=== PATIENT | male | born 1955 | race Caucasian/White ===

== ENCOUNTER 2017-08-24 18:11 | Emergency (ER) | payer SELFPAY ==
[~2017-08-24 18:11] MED LIST: Sodium Chloride Irrig Solution 250 ML BOT ONE
--- NOTE | 2017-08-24 19:33 | RAD ---
RIGHT LITTLE FINGER 08/24/17 HISTORY: Table saw injury to finger. Soft tissue injury without underlying fracture is seen. IMPRESSION: No evidence of fracture. POS: [facility]
[2017-08-24] MEDS ORDERED: Adacel (T-DAP) 0.5 ML VIAL ONE (19:39)
[2017-08-24] MEDS ORDERED: Triple Antibiotic Oint 1 GM Packet ONE (19:53)
== END 2017-08-24 20:32 | disposition home or self-care (01) ==
LOC: MADERS 18:11
DX: S61.216A Laceration without foreign body of right little finger without damage to nail, initial encounter (principal); W26.9XXA Contact with unspecified sharp object(s), initial encounter; Y92.009 Unspecified place in unspecified non-institutional (private) residence as the place of occurrence of the external cause
CPT/HCPCS: 12001; 90471; 90715; J2001

== ENCOUNTER 2017-08-31 14:00 | Emergency (ER) | payer SELFPAY | END 2017-08-31 15:29 | disposition home or self-care (01) | LOC: MADERS 14:00 | DX: S61.216D Laceration without foreign body of right little finger without damage to nail, subsequent encounter (principal) ==

== ENCOUNTER 2019-02-27 23:45 | Emergency (ER) | payer SELFPAY ==
[2019-02-28] MEDS ORDERED: Ibuprofen 800 MG TAB ONE (00:21)
--- NOTE | 2019-02-28 07:40 | RAD ---
XR Ankle Lt 3 View STANDARD HISTORY: Injury, left ankle pain FINDINGS: No acute fracture or dislocation is identified. The ankle mortise is maintained. An ossific density s een posteriorly superior to the calcaneus.
== END 2019-02-28 00:45 | disposition home or self-care (01) ==
LOC: MADERS 23:45
DX: S93.402A Sprain of unspecified ligament of left ankle, initial encounter (principal); X50.9XXA Other and unspecified overexertion or strenuous movements or postures, initial encounter